=== PATIENT | female | born 1960 | race Caucasian/White ===

== ENCOUNTER → 2018-10-03 14:59 | Outpatient (CLI) | payer OTHER | END | disposition home or self-care (01) | LOC: D.HCCARDIO 14:59 | DX: R07.9 Chest pain, unspecified (principal) ==

== ENCOUNTER 2018-10-26 10:47 | Outpatient (CLI) | payer OTHER ==
[~2018-10-26] VITALS: Ht 175.3 cm; Wt 77.3 kg
--- NOTE | ~2018-10-26 | HEMODYNAMI ---
PATIENT:MARIANNE MADSEN MEDICAL RECORD: [id number] : 56 LOCATION:DSandrineCAT ADMISSION DATE: 10/26/18 Generatedon:10/26/201813:15 Patient name: MARIANNE MADSEN Patient #: [id number] SSN: : 1960 Date of study: 10/26/2018 Page: Of Hemodynamic Procedure Report Patient Data Patient Demographics Procedure consent was obtained First Name: MARIANNE Gender: Female Last Name: TENA : 1960 [facility] Initial: SHERRY Age: 58 year(s) Patient #: [id number] Race: Unknown Additional ID: [id number] Contact details Address: [address] [place] [address] State: [place] City: [place] Zip code: [address] Admission Admission Data Admission Date: 10/26/2018 Admission Time: 10:47 Arrival Date: 10/26/2018 Arrival Time: 13:00 Admit Source: Other Insurance Payor: Private health insurance Height (in.): 69 BSA: 1.93 (m2) Height (cm.): 175.26 BMI: 25.07 (kg/m2) Weight (lbs.): 169.76 Weight (kg.): 77 Lab Results Lab Result Date: 10/26/2018 Lab Result Time: 0:00 CBC Name Units Result Min Max Hematocrit % 44.2 --(*---)-- 42 54 Hemoglobin g/dl 14.5 --(*---)-- 13.5 17.5 Procedure Procedure Types Cath Procedure Diagnostic Procedure LHC LHC w/Coronaries Procedure Description Procedure Date Procedure Date: 10/26/2018 Procedure Start Time: 13:05 Procedure End Time: 13:13 Procedure Staff Name Function Tristen Sandoval MD Performing Physician vAelina Garcia RT Monitor Arnaldo Cross RT Scrub Yohan Powers RN Nurse Elana Huff RN [place] Procedure Data Cath Procedure Fluoroscopy Diagnostic fluoroscopy Total fluoroscopy Time: 0.8 time: 0.8 min min Diagnostic fluoroscopy Total fluoroscopy dose: 294 dose: 294 mGy mGy Contrast Material Contrast Material Type Amount (ml) Isovue 300 42 Entry Location Entry Primary Successful Side Size Upsize Upsize Entry Closure Sam ccessful Closure Location (Fr) 1 (Fr) 2 (Fr) Remarks Device Remarks Radial Right 6 Fr Mechanical artery Short Compression Estimated blood loss: 5 ml Diagnostic catheters Device Type Used For End Catheter Placement DIAGNOSTIC [place] 110cm 5 Multi-vessel Fr catheter (606116) Angiography Procedure Complications No complications Procedure Medications Medication Administration Route Dosage 0.9% NaCl I.V. 100 ml/hr Oxygen etCO2 Nasal cannula 2 l/min Heparin Flush Bag added to field 2 bags (1000units/500ml NS) Lidocaine 2% added to field 20 Radial Cocktail added to field 1 syringe (Verapomil 2mg/Nitro 400mcg/Heparin 1500units) Versed I.V. 1 mg Fentanyl I.V. 50 mcg Versed I.V. 1 mg Fentanyl I.V. 50 mcg Radial Cocktail I.A. 1 syringe (Verapomil 2mg/Nitro 400mcg/Heparin 1500units) Hemodynamics Rest BSA: 1.93 (m2) O2 Consumption: Estimated: 170.95 (ml/min) O2 Consumption indexed : Estimated:88.58 (ml/min/m) Heart Rate: 54 (bpm) Pressure Samples Time Site Value (mmHg) Purpose Heart Use Rate(bpm) 13:09 LV 144/3,17 Snapshot 59 13:09 AO 114/66(86) Pullback 57 13:09 LV 113/40,20 Pullback 57 Gradients Valve Time Site 1 Site 2 Mean SEP/DFP Peak To Heart Use (mmHg) (sec/min) Peak Rate (mmHg) (bpm) Aortic 13:09 LV AO 0 1 0 57 113/40,20 114/66(86) Calculations Valve P-P Mean Valve Index Valve Source Name Gradient Area Flow (cm2) Aortic 0 0 0 0 Snapshots Pre Cath Intra NCS Post Cath Vital Signs Time Heart Resp SPO2 etCO2 NIBP (mmHg) Rhythm Pain Sedation Rate (ipm) (%) (mmHg) Status Level (bpm) 12:56:32 57 14 97 35.4 158/58(97) NSR 0 (11) 10(A) , No pain 13:00:58 71 15 93 33.9 128/56(113) NSR 0 (11) 10(A) , No pain 13:05:12 62 24 96 40.7 126/60(87) NSR 0 (11) 9(A) , No pain 13:09:28 61 11 94 16.6 118/50(93) NSR 0 (11) 9(A) , No pain 13:13:43 79 9 90 40.7 120/51(84) NSR 0 (11) 9(A) , No pain Medications Time Medication Route Dose Verified Delivered Reason Notes Effectiveness by by 12:54:17 0.9% NaCl I.V. 100 Yohan Yohan Per ml/hr iGo Powers physician RN RN 12:54:26 Oxygen etCO2 2 l/min Yohan Yohan for low 02 Nasal Lorigan Lorigan sats cannula RN RN 12:54:36 Heparin Flush added 2 bags Yohan Yohan used for Bag to Lorigan Lorigan procedure (1000units/500ml field RN RN NS) 12:54:47 Lidocaine 2% added 20ml Yohan Yohan for local to vial Lorigan Lorigan anesthetic field RN RN 12:54:56 Radial Cocktail added 1 Yohan Yohan used for (Verapomil to syringe Lorigan Lorigan procedure 2mg/Nitro RN RN 400mcg/Heparin 1500units) 13:02:03 Versed I.V. 1 mg Yohan Yohan for sedation Gio Powers RN RN 13:02:11 Fentanyl I.V. 50 mcg Yohan Yohan for sedation Gio Powers RN RN 13:06:30 Versed I.V. 1 mg Yohan Yohan for sedation Gio Powers RN RN 13:06:35 Fentanyl I.V. 50 mcg Yohan Yohan for sedation Gio Powers RN RN 13:07:27 Radial Cocktail I.A. 1 Yohan Tristen for (Verapomil syringe Lorigan Jaime vasodilation 2mg/Nitro TAN CAGE 400mcg/Heparin 1500units) Procedure Log Time Note 12:34:32 Informed consent obtained and on chart 12:34:35 Admit Source: Other 12:35:00 Diagnostic Cath status Elective 12:35:02 Time tracking: Regular hours (M-F 7:00 - 5:00) 12:35:06 Plan of Care:Hemodynamics will remain stable., Cardiac rhythm will remain stable., Comfort level will be maintained., Respiratory function will remain adequate., Patient/ family verbilizes understanding of procedure., Procedure tolerated without complication., Recovers from procedure without complications.. 12:35:09 Elana Huff RN sent for patient. Start room use. 12:35:58 Patient Weight : 169.76 lbs 12:36:31 Lab Result : Hemoglobin 14.5 g/dl 12:36:31 Lab Result : Hematocrit 44.2 % 12:36:34 Lab results completed and on chart. 12:45:34 Patient received from Pre/Post Procedure Room to CCL 2 Alert and oriented. Tansferred to table in Supine position. 12:45:35 Warm blankets applied, and chivo hugger turned on for patient comfort. 12:45:35 Correct patient and procedure confirmed by team. 12:45:35 ECG and BP/O2 sat monitors applied to patient. 12:45:37 Pre-procedure instructions explained to patient. 12:45:37 Pre-op teaching completed and patient verbalized understanding. 12:45:38 Family in waiting room. 12:45:39 Patient NPO since Midnight. 12:53:40 Is the patient allergic to Iodine/contrast media? No. 12:53:41 Was the patient premedicated? No 12:54:06 Is patient on blood thinner?No 12:54:07 Patient diabetic? No. 12:54:10 Previous problem with sedation/anesthesia? No ? 12:54:12 Snore? Yes 12:54:13 Sleep apnea? No 12:54:14 Deviated septum? No 12:54:15 Opens mouth fully? Yes 12:54:15 Sticks out tongue? Yes 12:54:17 0.9% NaCl 100 ml/hr I.V. was administered by Yohan Powers RN; Per physician; 12:54:20 Airway obstruction? Yes copd 12:54:26 Oxygen 2 l/min etCO2 Nasal cannula was administered by Yohan Powers RN; for low 02 sats; 12:54:36 Heparin Flush Bag (1000units/500ml NS) 2 bags added to field was administered by Yohan Powers RN; used for procedure; 12:54:47 Lidocaine 2% 20ml vial added to field was administered by Yohan Powers RN; for local anesthetic; 12:54:56 Radial Cocktail (Verapomil 2mg/Nitro 400mcg/Heparin 1500units) 1 syringe added to field was administered by Yohan Powers RN; used for procedure; 12:55:14 Vital chart was started 12:55:33 Dentures? No ? 12:55:36 Pre procedure: right dorsailis pedis pulse 2+ Normal; easily identifiable; not easily obliterated 12:55:39 Pre procedure: left dorsailis pedis pulse 2+ Normal; easily identifiable; not easily obliterated 12:55:43 Patient pain scale 0/10 ?. 12:56:04 IV patent on arrival in left forearm with 0.9% NaCl at O. 12:56:09 Right Radial & Right Groin area was prepped with chlora-prep and draped in sterile fashion 12:56:11 Alarms reviewed by R. N. 12:56:11 Sharps counted by scrub and verified by R.N. 12:56:31 Physician arrived 12:56:32 --------ALL STOP TIME OUT------ 12:56:32 Final Timeout: patient, procedure, and site verified with staff and physician. All members of the team are in agreement. 12:56:34 Right Radial & Right Groin site verified by team. 12:56:38 Maximum allowable Isovue 300 dose 300ml. Physician notified. (300ml for normal creatinines. For patients with creatinine of 1.7 or higher multiply weight(kg) x 5 divided by creatinine.) 12:56:42 Fire Safety Assessment: A--An alcohol-based skin anteseptic being used preoperatively., C--Open oxygen or nitrous oxide is being used., D--An ESU, laser, or fiber-optic light is being used. 12:56:46 Physical assessment completed. ASA score P 2 - A patient with mild systemic disease as per Tristen Sandoval MD. 12:56:50 Sedation plan: IV Moderate Sedation Medication:Versed, Fentanyl 12:56:54 Use device set Radial Dx or PCI 12:56:55 ACIST Syringe (70779) opened to sterile field. 12:56:55 Medline Cath Pack ([id number]) opened to sterile field. 12:56:56 Bag Decanter () opened to sterile field. 12:56:56 DIAGNOSTIC WIRE .035 260cm J wire (060765) opened to sterile field. 12:56:56 ACIST Hand Control (77596) opened to sterile field. 12:56:57 ACIST Manifold (22252) opened to sterile field. 12:56:57 Tegaderm 4 x 4 (1626W) opened to sterile field. 12:56:58 MBrace Wrist Support ([id number]) opened to sterile field. 12:57:00 SHEATH 6FR Slender (65-0264) opened to sterile field. 12:59:51 Patient Height : 69 inches 12:59:55 Insurance Payor : Private health insurance 12:59:59 Arrival Date: 10/26/2018 1:00:00 PM 13:02:03 Versed 1 mg I.V. was administered by Yohan Powers RN; for sedation; 13:02:11 Fentanyl 50 mcg I.V. was administered by Yohan Powers RN; for sedation; 13:05:47 Procedure started. 13:05:47 Full Disclosure recording started 13:05:54 Local anesthetic to right radial artery with Lidocaine 2% by Tristen Sandoval MD.INITIAL ACCESS ONLY 13:06:17 A 6 Fr Short sheath was inserted into the Right Radial artery 13:06:23 Baseline sample Acquired. 13:06:30 Versed 1 mg I.V. was administered by Yohan Powers RN; for sedation; 13:06:35 Fentanyl 50 mcg I.V. was administered by Yohan Powers RN; for sedation; 13:07:27 Radial Cocktail (Verapomil 2mg/Nitro 400mcg/Heparin 1500units) 1 syringe I.A. was administered by Tristen Sandoval MD; for vasodilation; 13:07:59 A DIAGNOSTIC [place] 110cm 5 Fr catheter (347052) was advanced over the wire and used for Multi-vessel Angiography. 13:09:25 LV hemodynamics recorded. 13:09:27 LV gram done using LENNON 13:09:29 Injector settings: Ml/sec: 5, Volume: 15, 13:09:46 EF : 55 % 13:09:55 LCA angiography performed. 13:10:00 Injector settings: Ml/sec: 3, Volume: 6, 13:10:49 RCA angiography performed. 13:10:53 Injector settings: Ml/sec: 3, Volume: 6, 13:11:07 Catheter removed. 13:11:09 TR BAND Standard ([id number]) opened to sterile field. 13:11:40 Sheath removed intact; hemostasis achieved with Mechanical Compression to the Right Radial artery. 13:11:44 Procedure ended.(Physican Out) 13:12:01 Fluoroscopy time 00.80 minutes. 13:12:05 Fluoroscopy dose: 294 mGy 13:12:05 Flurop Dose total: 294 13:12:10 Contrast amount:Isovue 300 42ml. 13:12:12 Sharps counted by scrub and verified by R.N. 13:12:14 TR band inflated with 10cc of air. 13:12:15 Insertion/operative site no bleeding no hematoma. 13:12:22 Post right radial artery:stable 13:12:24 Post Procedure Pulses reassessed and unchanged 13:12:27 Post procedure rhythm: unchanged. 13:12:29 Estimated blood loss: 5 ml 13:12:34 Post procedure instruction explained to patient.Patient verbalizes understanding. 13:12:35 Patient needs reinforcement of post procedure teaching. 13:12:47 Procedure Complication : No complications 13:12:51 Vital chart was stopped 13:12:51 See physician's report for complete and final results. 13:12:54 Report given to Pre/Post Procedure Room. 13:12:59 Patient transfered to Pre/Post Procedure Room with Stretcher. 13:13:02 Procedure ended. 13:13:02 Full Disclosure recording stopped 13:13:06 End room use (Document Last) Device Usage Item Name Manufacture Quantity Catalog Hospital Part Current Minimal Lot# / Number Charge Number Stock Stock Serial# Code ACIST Acist 1 08397 [id number] [id number] 924188 20 Syringe Medical (10195) Systems Inc Medline Medline 1 [id number] 160916 07432 855410 5 Cath Pack ([id number]) Bag Microtek 1 2001S 635869 54016 312984 5 Decanter Medical Inc. () DIAGNOSTIC [place] 1 770007 464856 837385 794056 30 WIRE .035 260cm J wire (140520) ACIST Hand Acist 1 89792 713280 246841 159116 5 Control Medical (21109) Systems Inc ACIST Acist 1 56840 326234 780682 790091 5 Manifold Medical (70681) Systems Inc Tegaderm 4 3M 1 1626W 942478 798979 071377 5 x 4 (1626W) MBrace Advanced 1 140-0250-00 175437 71058 835821 5 Wrist Vascular Support Dynamics ([id number]) SHEATH 6FR Terumo 1 [id number] 422721 750758 431134 5 Slender (801060) DIAGNOSTIC Terumo 1 40-5753 062119 126908 359381 5 [place] 110cm 5 Fr catheter (598797) TR BAND Terumo 1 [id number] 462231 809801 218565 40 Standard ([id number]) Signature Audit Sherrill Stage Time Signature Unsigned Intra-Procedure 10/26/2018 Avelina Garcia 1:15:19 PM RT(R) Signatures Monitor : Avelina Garcia RT Signature : Date : Time : [place] [id number] [place] [address]
[~2018-10-26 10:47] MED LIST: MONODOX100 MG PO
[2018-10-26] MEDS ORDERED: ALBUTEROL SULF8.5 GM INH (11:28)
[2018-10-26] MEDS ORDERED: BYSTOLIC5 MG PO (11:29)
[2018-10-26 11:42] VITALS: BP 131/57; Ht 175.3 cm; Wt 77.3 kg
[2018-10-26 11:44] LABS: BASOPHILS 0.3 % (0-2); HEMATOCRIT 44.2 % (36.0-48.0); HEMOGLOBIN 14.5 g/dL (12-16); IMMATURE GRANULOCYTES 0.1 % (0-5); LYMPHOCYTES 35.3 % (15-50); MCHC 32.8 g/dL (31.0-37.0); MCV 94.4 fL (80.0-100.0); MEAN PLATELET VOLUME 10.5 fL (7.4-10.4); MONOCYTES 4.5 % (2-11); NEUTROPHILS 57.8 % (40-80); PLATELET COUNT 249 10x3/uL (130-400); RBC 4.68 10x6/uL (4.00-5.40); RDW 12.9 % (11.5-14.5); WBC 7.6 10x3/uL (4.8-10.8)
--- NOTE | 2018-10-26 13:25 | NUR ---
PT RECEIVED VIA STRETCHER FROM G[employer] MARKER FOR RECOVERY. PT SLEEPING, BUT VERBALLY AROUSABLE. TR BAND TO R WRIST, DRESSING CDI NO BLEEDING OR HEMATOMAN NOTED. CAP REFILL BRISK. HR SINUS SANKET RATE 44, BP 116/65, O2 SAT 96 PLACED ON 1L/NC O2. PT DENIES PAIN OR NEEDS JUST WANTS TO SLEEP. PT INSTRUCTED TO KEEP WRIST STRAIGHT IF POSSIBLE. CALL LIGHT IN REACH.
[2018-10-26 13:36] LABS: CALC OSMOLALITY 282 mosm/kg (275-300); CALCIUM 9.1 mg/dL (8.5-10.1); CHLORIDE - SERUM 105 mmol/L (98-107); CREATININE - SERUM 0.6 mg/dL (0.6-1.3); GLUCOSE 83 mg/dL (74-106); POTASSIUM - SERUM 4.2 mmol/L (3.5-5.1); SODIUM 142 mmol/L (136-145); UREA NITROGEN 15 mg/dL (7-18); eGFR NON AFRICAN AMERICAN > 90 mL/min (90-120)
--- NOTE | 2018-10-26 13:39 | NUR ---
PATIENT RESTING, VSS ON 2L NC. RIGHT TR BAND IN PLACE, NO S/S OF BLEEDING OR HEMATOMA. NO C/O PAIN, NUMBNESS, OR TINGLING. PRESENT AT BEDSIDE. NO N/V.
--- NOTE | 2018-10-26 14:10 | NUR ---
PATIENT RESTING, VSS ON 1L NC. RIGHT TR BAND IN PLACE, BEGIN AIR REMOVAL PROTOCOL, 4CC OF AIR REMOVED, NO S/S OF BLEEDING OR HEMATOMA. NO C/O PAIN, NUMBNESS, OR TINGLING. NO N/V.
--- NOTE | 2018-10-26 14:40 | OP ---
PATIENT NAME: MARIANNE MADSEN MEDICAL RECORD: [id number] :56 LOCATION:D.CAT ADMISSION DATE: SURGEON: STEPHANIE AGUILERA MD DATE OF OPERATION: 10/26/2018 PROCEDURE: Left heart catheterization, selective coronary angiography, right radial approach. CATHETERS: Radial sheath, [place] catheter. The procedure was well tolerated. The patient returned to obrien. Sheath was removed. TR band was placed. FINDINGS: Left ventriculography in 30-degree LENNON view. Normal wall motion and normal systolic function. CORONARY ANATOMY: LEFT MAIN: Large vessel, free of disease. CIRCUMFLEX: Large vessel, free of disease. RIGHT CORONARY ARTERY: Large dominant right artery, free of disease. IMPRESSION: Normal left ventricular systolic function. Normal coronary anatomy. TRANSINT:[id number] Voice Confirmation ID: [id number] DOCUMENT ID: [id number] STEPHANIE AGUILERA MD at 1440 CC: [id number] DICTATION DATE: 10/26/18 1316 GLASS PRODUCTION MACHINE OPERATOR: 10/26/18 1437 [address] [place] [id number] [place] [id number]
--- NOTE | 2018-10-26 14:40 | NUR ---
FOLLOWING AIR REMOVAL PROTOCOL, 4CC OF AIR REMOVED FROM TR BAND. NO S/S OF BLEEDING OR HEMATOMA. NO C/O PAIN, NUMBNESS, OR TINGLING. PATIENT AWAKE, EATING SANDWICH AND DRINKING WATER. VSS ON ROOM AIR. AT BEDSIDE.
--- NOTE | 2018-10-26 15:05 | NUR ---
REMAINING AIR REMOVED FROM TR BAND, NO S/S OF BLEEDING OR HEMATOMA. IV REMOVED. VSS ON ROOM AIR.
--- NOTE | 2018-10-26 15:20 | NUR ---
EDUCATION GIVEN TO PATIENT AND SPOUSE REGARDING DISCHARGE INSTRUCTIONS, PATIENT VOICED UNDERSTANDING. DRESSING ON RIGHT RADIAL SITE IS CDI, NO S/S OF BLEEDING OR HEMATOMA. NO C/O PAIN, NUMBNESS, OR TINGLING. PATIENT VOIDED WITHOUT DIFFICULTY.
--- NOTE | 2018-10-26 15:30 | NUR ---
PATIENT TRANSPORTED VIA WHEELCHAIR TO CAR WITH SPOUSE DRIVING, ALL BELONGINGS WITH PATIENT.
== END 2018-10-26 15:30 ==
LOC: D.CATH 10:47
PROVIDERS: ATTEND Internal Medicine Interventional Cardiology
DX: I20.9 Angina pectoris, unspecified (principal); Z01.812 Encounter for preprocedural laboratory examination